=== PATIENT | male | born 2000 | race Asian ===

== ENCOUNTER 2023-03-04 08:23 | Emergency (ER) | payer OTHER ==
[~2023-03-04] VITALS: Ht 172.7 cm; Wt 77.1 kg
[2023-03-04 08:32] VITALS: BP 124/75
--- NOTE | 2023-03-04 08:35 | NUR ---
pt ambulatory to [facility]
[2023-03-04] MEDS ORDERED: IBUP-2218 PO (09:37)
[2023-03-04] MEDS ORDERED: AMOX1TAB8 PO (09:37)
[2023-03-04] MEDS ORDERED: AMOXIL/CLAVULANATE 875/125 MG 1 TAB PO ONE (09:40)
--- NOTE | 2023-03-04 09:53 | NUR ---
Patient discharged with v/s stable. Written and verbal after care instructions given and explained. Patient alert, oriented and verbalized understanding of instructions. Ambulatory with to home. All questions addressed prior to discharge. ID band removed. Patient advised to follow up with PMD. Rx of AUGMENTIN. MOTRIN given. Patient educated on indication of medication including possible reaction and side effects. Opportunity to ask questions provided and answered.
== END 2023-03-04 09:53 | disposition home or self-care (01) ==
LOC: MED 08:23
DX: K05.00 Acute gingivitis, plaque induced (principal); Z79.899 Other long term (current) drug therapy
CPT/HCPCS: 99283